=== PATIENT | female | born 1970 | race Caucasian/White ===

== ENCOUNTER 2016-12-19 14:14 | Emergency (ER) | payer SELFPAY ==
[2016-12-19 14:17] VITALS: BP 146/77; PULSE 108; RESP 15; TEMP 98.7; O2SAT 95
--- NOTE | 2016-12-19 16:18 | PD ---
HPI Chief Complaint: Cold / Flu Symptoms Time Seen by Provider: 16:17 Travel History International Travel<30 days: No Contact w/Intl Traveler<30days: No Traveled to known affect area: No History of Present Illness HPI 46-year-old female presents to the emergency Department with complaint of nasal congestion, throat irritation, cough, bilateral ear pressure 2 weeks. Patient has history of asthma and is also complaining of chest tightness, shortness of breath, and wheezing for the past 3-4 days. She does not have an inhaler and cannot afford to buy an inhaler. Denies tobacco use. Denies fever, vomiting. Denies chest pain. Has no other medical complaints. No known allergies. No other modifying factors or associated signs and symptoms. PFSH Past Medical History Asthma: Yes Respiratory: Yes ?: Unknown Past Surgical History Surgical History: No Previous Surgery Social History Alcohol Use: Yes (social) Tobacco Use: No Substance Use: No Allergies-Medications (Allergen,Severity, Reaction): Coded Allergies: No Known Allergies (Unverified , 12/19/16) Reported Meds & Prescriptions Reported Meds & Active Scripts Active Deltasone (Prednisone) 20 Mg Tab 40 Mg PO DAILY 4 Days start 12/20/2016 Azithromycin 500 Mg Tab 500 Mg PO DAILY Review of Systems Except as stated in HPI: all other systems reviewed are Neg Physical Exam Narrative GENERAL: Well-nourished, well-developed female patient, in no acute distress; afebrile, nontoxic-appearing SKIN: Warm and dry. HEAD: Atraumatic. Normocephalic. EYES: Pupils equal and round. No scleral icterus. No injection or drainage. ENT: Mucosa pink and moist. Oropharynx with erythema; without exudates or edema. No uvular edema. No uvular, palatal, or tonsillar deviation. Airway patent. Nares without nasal blood, purulent drainage or septal hematoma. EARS: Bilateral pinnae and external canals appear within normal limits. Bilateral tympanic membranes without erythema, dullness or perforation. NECK: Trachea midline. No lymphadenopathy. CARDIOVASCULAR: Regular rate and rhythm. No murmur appreciated. RESPIRATORY: No accessory muscle use. Lungs with Wheezing throughout and decreased lung sounds to auscultation. Breath sounds equal bilaterally. No retractions or tachypnea. Audible wheezing noted. GASTROINTESTINAL: Abdomen soft, non-tender, nondistended. Hepatic and splenic margins not palpable. Bowel sounds are active 4 quadrants. MUSCULOSKELETAL: No obvious deformities. No clubbing. No cyanosis. No edema. NEUROLOGICAL: Awake and alert. Oriented 3. No obvious cranial nerve deficits. Motor grossly within normal limits. Normal speech. Moves all extremities. 5/5 strength to all extremities. PSYCHIATRIC: Appropriate mood and affect; insight and judgment normal. Data Data Last Documented VS Vital Signs Date Time Temp Pulse Resp B/P Pulse Ox O2 Delivery O2 Flow Rate FiO2 12/19/16 16:48 96 21 12/19/16 16:06 20 12/19/16 14:17 98.7 108 146/77 Orders Prednisone (Deltasone) (12/19/16 16:30) Albuterol-Ipratropium Neb (Duoneb Neb) (12/19/16 16:30) Albuterol Hfa Inh (Proair Hfa Inh) (12/19/16 16:30) [facility] Medical Decision Making Medical Screen Exam Complete: Yes Emergency Medical Condition: Yes Medical Record Reviewed: Yes Differential Diagnosis Upper respiratory infection, bronchitis, asthma exacerbation, pneumonia Narrative Course 46-year-old female physical exam, history of present illness consistent with upper respiratory infection and asthma exacerbation. Patient is in no acute distress and without retractions or tachypnea. All wheezing noted. DuoNeb 3 ordered. Deltasone administered in the ER. Patient cannot afford an albuterol inhaler, so I will order an inhaler to provide it for home. Albuterol inhaler provided in the ER. Deltasone and azithromycin prescribed for home. Instructed patient to follow up with primary care provider. Patient verbalizes understanding and agreement with treatment plan. Patient is medically cleared and stable for discharge. Discussed reasons to return to the emergency department. Patient agrees with treatment plan. The patients vital signs are stable and the patient is stable for outpatient follow-up and treatment. Patient discharged home, stable and in no acute distress. Diagnosis Primary Impression: URI (upper respiratory infection) Qualified Code: J06.9 - Upper respiratory tract infection, unspecified type Additional Impression: Asthma exacerbation Referrals: Primary Care Physician Patient Instructions: Asthma (ED), General Instructions, Upper Respiratory Infection (ED) Departure Forms: Tests/Procedures, Work Release Enter return to work date: Dec 20, 2016 Additional Instructions: Use Albuterol inhaler as prescribed Take oral steroids as prescribed and complete full course Antibiotics as prescribed [id number] decongestants or antihistamines as directed and as needed for symptom management Your cough can last 4-6 weeks Drink plenty of fluids to prevent dehydration Use hot air humidifier to decrease cough exacerbation Turn off ceiling fans and sleep with head of bed elevated Avoid triggers such as second hand smoke, dust, known allergens Follow-up with your primary care provider Return to the emergency department immediately with worsening of symptoms Med/Other Pt SpecificInfo: Prescription(s) given Scripts Prednisone (Deltasone)20 Mg Tab40 Mg PO DAILY 4 Days Ref 0 start 12/20/2016 Prov:Natalie Leo 12/19/16 Azithromycin 500 Mg [id number] Mg PO DAILY #5 TAB Ref 0 Prov:Natalie Leo 12/19/16 Disposition: 01 DISCHARGE HOME Condition: Stable Natalie Loe Dec 19, 2016 16:18
[2016-12-19] MEDS ORDERED: PRED-503 PO (16:22)
[2016-12-19] MEDS ORDERED: AZIT500T2 PO (16:22)
[2016-12-19] MEDS ORDERED: predniSONE 20 MG TAB PO ONE (16:30)
[2016-12-19] MEDS ORDERED: ALBUTEROL SULFATE 90 MCG/ACT HFA 8 GM INHALER INH ONE (16:30)
[2016-12-19 16:48] VITALS: O2SAT 96
[2016-12-19] MEDS: RESP: ALBUTEROL 2.5 MG/IPRATROPIUM 0.5 MG NEB (SCH) INH (16:48)
[2016-12-19 17:57] VITALS: BP 99/59; PULSE 107; RESP 17; O2SAT 98
[2016-12-19] MEDS ORDERED: ALBUTEROL SULFATE 90 MCG/ACT HFA 18 GM INHALER INH ONE (18:00)
== END 2016-12-19 18:16 | disposition home or self-care (01) ==
LOC: NEPD 14:14
DX: J06.9 Acute upper respiratory infection, unspecified (principal); J45.901 Unspecified asthma with (acute) exacerbation; Z79.899 Other long term (current) drug therapy
CPT/HCPCS: 94640; 94664; 99284; J7512